=== PATIENT | male | born 1930 | race Caucasian/White ===

== ENCOUNTER 2017-09-09 17:23 | Emergency (ER) | payer MEDICARE, BC ==
[2017-09-09 17:32] VITALS: BP 196/96
== END 2017-09-09 17:51 | disposition left against medical advice (07) ==
LOC: ED 17:23
DX: R10.30 Lower abdominal pain, unspecified (principal); Z53.21 Procedure and treatment not carried out due to patient leaving prior to being seen by health care provider
CPT/HCPCS: 99281

== ENCOUNTER 2017-09-09 18:05 | Emergency (ER) | payer MEDICARE, BC ==
--- NOTE | 2017-09-09 18:45 | UC ---
Back Pain HPI - HPI Summary HPI Summary: 86 yo male with onset of right testicular pain and right back pain about 3PM has had 2 30 minute episodes of 10/10 pain that he decribes as unbearable no vomiting or fever no uri symptoms was in ER then got fed up and came her currently pain is "bearable" States he recently had his aorta imaged and there were 'no problems" HX CAD - History of Current Complaint Chief Complaint: UCBackPain Stated Complaint: BACK PAIN, AND TESTICULAR PAIN Time Seen by Provider: 09/09/17 18:18 Hx Obtained From: Patient Onset/Duration: Sudden Onset, Lasting Hours Timing: Constant Severity Initially: Severe Severity Currently: Mild Pain Intensity: 4 Pain Scale Used: 0-10 Numeric Character: Unable to Describe Aggravating Factor(s): Nothing Alleviating Factor(s): Nothing Associated Signs And Symptoms: Positive: Flank Pain - Allergies/Home Medications Allergies/Adverse Reactions: Allergies Allergy/AdvReac Type Severity Reaction Status Date / Time Morphine Allergy Vomiting Verified 09/09/17 18:19 all opiods Allergy Vomiting Uncoded 09/09/17 18:19 Home Medications: Home Medications Aspirin 81 MG TAB 81 mg PO DAILY 09/09/17 [History Confirmed 09/09/17] Atenolol TAB* [Tenormin TAB* 25 MG] 1 tab PO DAILY 09/09/17 [History Confirmed 09/09/17] Atorvastatin* [Lipitor 10 MG*] 1 tab PO DAILY 09/09/17 [History Confirmed ] PMH/Surg Hx/FS Hx/Imm Hx Cardiovascular History: Cardiac Disease - Surgical History Surgical History: Yes Surgery Procedure, Year, and Place: cardiac stent 2006 [facility] [place] - Family History Known Family History: Positive: Hypertension - Social History Alcohol Use: Daily Substance Use Type: None Smoking Status (MU): Never Smoked Tobacco Review of Systems Constitutional: Negative Skin: Negative Eyes: Negative ENT: Negative Respiratory: Negative Cardiovascular: Negative Gastrointestinal: Negative, Nausea Genitourinary: Negative Motor: Negative Neurovascular: Negative Musculoskeletal: Negative Neurological: Negative Psychological: Negative Is Patient Immunocompromised?: No All Other Systems Reviewed And Are Negative: Yes Physical Exam Triage Information Reviewed: Yes Appearance: Well-Nourished, Pain Distress Vital Signs: Initial Vital Signs Pulse 108 09/09/17 18:14 Resp 22 09/09/17 18:14 Pulse Ox 100 09/09/17 18:14 Eyes: Positive: Conjunctiva Clear ENT: Positive: Hearing grossly normal, Pharynx normal. Negative: Nasal drainage Neck: Positive: Supple, Nontender Respiratory: Positive: Lungs clear, Normal breath sounds, No respiratory distress Cardiovascular: Positive: RRR, No Murmur, Pulses Normal Abdomen Description: Positive: Soft, Bruit, CVA Tenderness (R) - slight, Other: - testicles non tender and normal orientation/lie. Negative: Nontender - some RUQ tenderness Musculoskeletal: Positive: ROM Intact, No Edema Neurological: Positive: Alert Skin Exam: Normal Back Pain Course/Dx - Course Course Of Treatment: declines analgesic. declines EMS transfer - Differential Dx/Diagnosis Provider Diagnoses: severe right flank pain of uncertain cause Discharge - Discharge Plan Condition: Fair Disposition: TRANS HIGHER LVL OF CARE FAC Referrals: No Primary Care Phys,NOPCP [Primary Care Provider] - Additional Instructions: I suggest you immediately return to the ER to get your symptoms evaluated
== END 2017-09-09 18:40 | disposition short-term general hospital (02) ==
LOC: UCEAST 18:05
DX: R10.11 Right upper quadrant pain (principal); N50.811 Right testicular pain; I51.9 Heart disease, unspecified; Z95.5 Presence of coronary angioplasty implant and graft; Z88.5 Allergy status to narcotic agent
CPT/HCPCS: 81003; 99202; G0463

== ENCOUNTER 2017-09-09 18:58 | Emergency (ER) | payer MEDICARE, BC ==
[2017-09-09] MEDS ORDERED: NS 0.9% 1000 ML* 1,000 ML IV ONE (20:26)
[2017-09-09 21:12] LABS: Hematocrit 41 % (42-52); Hemoglobin 14.2 g/dl (14.0-18.0); Mean Corpuscular HGB Conc 34 g/dl (31-36); Mean Corpuscular Hemoglobin 32 pg (27-31); Mean Corpuscular Volume 93 fL (80-94); Mean Platelet Volume 7 um3 (7.4-10.4); Red Blood Count 4.44 10^6/ul (4.0-5.4); Red Cell Distribution Width 13 % (10.5-15); White Blood Count 12.9 10^3/ul (3.5-10.8)
--- NOTE | 2017-09-09 21:26 | RAD ---
INDICATION: RIGHT lower back and RIGHT testicle pain. COMPARISON: No relevant prior exams available on the [facility] [place] for comparison. TECHNIQUE: Multidetector CT images were obtained from the lung bases to the ischial tuberosities. Evaluation of the viscera is limited without IV contrast. Multiplanar reformation. REPORT: Emphysema noted at the lung bases. Coronary artery calcifications. Unremarkable unenhanced liver. Contracted gallbladder without gross CT abnormality. Negative for biliary dilatation. Atrophic pancreas without suspicious finding. Unremarkable spleen. Mild perienteric stranding around the second segment of the duodenum. No extra enteric gas or perienteric abscess evident. Unremarkable jejunal and ileal small bowel loops. Normal medially extending appendix. Mild colonic diverticulosis without findings of diverticulitis. Negative for ascites or free air. Mild bilateral indirect fat-containing inguinal hernias without inflammatory change. Normal adrenal glands. Mild to moderate bilateral renal cortical atrophy. Negative for urolithiasis or hydronephrosis. Unremarkable nondilated ureters and distended urinary bladder. Enlarged prostate. Symmetric seminal vesicles. Negative for lymphadenopathy. Atherosclerotic calcification of normal diameter abdominal aorta and iliac arteries. Physiologic distention of the IVC. Negative for suspicious osseous lesions. IMPRESSION: 1. Normal appendix documented. 2. Negative for obstructive uropathy. 3. Mild perienteric inflammatory change surrounding the second segment of the duodenum concerning for potential duodenitis. Assessment is limited without enteric or IV contrast. Negative for perienteric abscess or extra enteric gas. The differential would include mild pancreatitis with associated inflammatory change around the second segment of the duodenum. 4. Bilateral small indirect fat-containing inguinal hernias without inflammatory change.
[2017-09-09 21:32] LABS: ALT 20 U/L (7-52); AST 26 U/L (13-39); Albumin 4.3 g/dL (3.2-5.2); Alkaline Phosphatase 58 U/L (34-104); Anion Gap 9 mmol/L (2-11); BUN/Creatinine Ratio 18.6 (8-20); Blood Urea Nitrogen 22 mg/dL (6-24); C Reactive Protein < 1.00 mg/L (< 5.00); CO2 Carbon Dioxide 22 mmol/L (22-32); Calcium 9.6 mg/dL (8.6-10.3); Chloride 108 mmol/L (101-111); EGFR African American 75.5 (>60); EGFR Non-African American 58.7 (>60); Globulin 2.4 g/dL (2-4); Glucose 146 mg/dL (70-100); Sodium 139 mmol/L (133-145); Total Protein 6.7 g/dL (6.4-8.9)
[2017-09-09 21:55] LABS: Amylase 65 U/L (29-103); Lipase 13 U/L (11.0-82.0)
--- NOTE | 2017-09-09 22:04 | ED ---
[facility], scribed for Jerilyn Avitia MD on 09/09/17 at 2029 . GI/ HPI - HPI Summary HPI Summary: The patient is a 86 year old male presenting to the ED c/o right testicular pain that began today at 15:00. The pain was severe but has mostly subsided. The pain radiated to his right back. The pain is rated 4/10 in the ED. The patient has treated the pain with acetaminophen prior to arrival. Patient was nauseous when he was in severe pain. Patient denies fever, vomiting, and hematuria. - History of Current Complaint Chief Complaint: EDGeneral Time Seen by Provider: 09/09/17 20:18 Stated Complaint: GROIN PAIN Hx Obtained From: Patient Onset/Duration: Started Hours Ago - onset today at 15:00, Still Present Timing: Constant Severity: Mild Pain Intensity: 4 Location of Pain: Radiates to: - right back Additional Locations for Males: Testicles - R testicular pain Associated Signs and Symptoms: Positive: Nausea. Negative: Vomiting, Fever, Hematuria Aggravating Factor(s): Nothing Alleviating Factor(s): Spontaneous Resolution - somewhat - Allergy/Home Medications Allergies/Adverse Reactions: Allergies Allergy/AdvReac Type Severity Reaction Status Date / Time Morphine Allergy Vomiting Verified 09/09/17 18:19 all opiods Allergy Vomiting Uncoded 09/09/17 18:19 PMH/Surg Hx/FS Hx/Imm Hx Previously Healthy: Yes Endocrine/Hematology History: Denies: Hx Diabetes Respiratory History: Denies: Hx Chronic Obstructive Pulmonary Disease (COPD) GI History: Denies: Hx Ulcer - Surgical History Surgery Procedure, Year, and Place: cardiac stent 2006 [facility] Infectious Disease History: No Infectious Disease History: Denies: Hx Hepatitis, Traveled Outside the [place] in Last 30 Days - Family History Known Family History: Positive: Hypertension - Social History Occupation: Retired Alcohol Use: Daily Substance Use Type: Reports: None Smoking Status (MU): Never Smoked Tobacco Review of Systems Negative: Fever Positive: Nausea. Negative: Vomiting Positive: other - R testicular pain. Negative: hematuria All Other Systems Reviewed And Are Negative: Yes Physical Exam - Summary Physical Exam Summary: VITAL SIGNS: Reviewed. GENERAL: Patient is a well-developed and nourished male who is lying comfortable in the stretcher. Patient is not in any acute respiratory distress. HEAD AND FACE: No signs of trauma. No ecchymosis, hematomas or skull depressions. No sinus tenderness. EYES: PERRLA, EOMI x 2, No injected conjunctiva, no nystagmus. EARS: Hearing grossly intact. Ear canals and tympanic membranes are within normal limits. MOUTH: Oropharynx within normal limits. NECK: Supple, trachea is midline, no adenopathy, no JVD, no carotid bruit, no c- spine tenderness, neck with full ROM. CHEST: Symmetric, no tenderness at palpation LUNGS: Clear to auscultation bilaterally. No wheezing or crackles. CVS: Regular rate and rhythm, S1 and S2 present, no murmurs or gallops appreciated. ABDOMEN: Soft, non-tender. No signs of distention. No rebound no guarding, and no masses palpated. Bowel sounds are normal. EXTREMITIES: FROM in all major joints, no edema, no cyanosis or clubbing. NEURO: Alert and oriented x 3. No acute neurological deficits. Speech is normal and follows commands. SKIN: Dry and warm GENITAL: Unremarkable testicular exam. Triage Information Reviewed: Yes Vital Signs On Initial Exam: Initial Vitals Temp Pulse Resp BP Pulse Ox 97 F 85 18 196/96 95 09/09/17 19:03 09/09/17 19:03 09/09/17 19:03 09/09/17 19:03 09/09/17 19:03 Vital Signs Reviewed: Yes Diagnostics - Vital Signs Vital Signs Temp Pulse Resp BP Pulse Ox 09/09/17 19:03 97 F 85 18 196/96 95 - Laboratory Result Diagrams: 09/09/17 21:00 09/09/17 21:00 Lab Statement: Any lab studies that have been ordered have been reviewed, and results considered in the medical decision making process. - CT CT Abd/Pel CT Interpretation: No Acute Changes - 1. Normal appendix documented. 2. Negative for obstructive uropathy. 3. Mild perienteric inflammatory change surrounding the second segment of the duodenum concerning for potential duodenitis. Assessment is limited without enteric or IV contrast. Negative for perienteric abscess or extra enteric gas. The differential would include mild pancreatitis with associated inflammatory change around the second segment of the duodenum. 4. Bilateral small indirect fat-containing inguinal hernias without inflammatory change. Dr. Avitia has reviewed this report. CT Interpretation Completed By: Radiologist Re-Evaluation - Re-Evaluation First Eval Re-Evaluation Time: 22:02 Change: Improved Comment: The patient has been asymptomatic in the ED without any medication. GIGU Course/Dx - Course Assessment/Plan: The patient is a 86 year old male presenting to the ED c/o right testicular pain that began today at 15:00. In the ED course the patient was given IV fluids. Bloodwork and urinalysis was obtained. CT Abd/Pel shows 1. Normal appendix documented. 2. Negative for obstructive uropathy. 3. Mild perienteric inflammatory change surrounding the second segment of the duodenum concerning for potential duodenitis. Assessment is limited without enteric or IV contrast. Negative for perienteric abscess or extra enteric gas. The differential would include mild pancreatitis with associated inflammatory change around the second segment of the duodenum. 4. Bilateral small indirect fat-containing inguinal hernias without inflammatory change. The patient has been asymptomatic in the ED without any medication. The patient is diagnosed with flank pain. The patient is instructed to follow up with primary care. - Diagnoses Provider Diagnoses: Flank pain Discharge - Discharge Plan Condition: Stable Disposition: HOME Patient Education Materials: Flank Pain (ED) Referrals: [facility] [place] PHYSICIAN REFERRAL [Outside] - 3 Days Additional Instructions: Follow up with your primary care physician in three days. Return to the emergency department for any new or worsening symptoms. The documentation as recorded by the Matheus diaz [facility] accurately reflects the service I personally performed and the decisions made by , Jerilyn Avitia MD.
[2017-09-09 22:12] VITALS: BP 176/84
[2017-09-09 22:17] LABS: Urine Bacteria Absent (Absent); Urine Bilirubin Negative (Negative); Urine Glucose Negative (Negative); Urine Nitrite Negative (Negative)
== END 2017-09-09 22:11 | disposition home or self-care (01) ==
LOC: ED 18:58
DX: R10.9 Unspecified abdominal pain (principal); Z88.5 Allergy status to narcotic agent
CPT/HCPCS: 36415; 74176; 80053; 81003; 81015; 82150; 83690; 85025; 86140; 96360; 99283